=== PATIENT | female | born 1960 | race Caucasian/White ===

== ENCOUNTER 2020-01-07 15:59 | Emergency (ER) | payer BC, OTHER ==
[2020-01-07] MEDS ORDERED: Lidocaine 1% 10 ML MDV INJECT ONE (16:14)
[2020-01-07] MEDS ORDERED: Diphtheria,Pertussis(Acell),Tetanus Vaccine 0.5 ML Syringe IM ONE (16:14)
--- NOTE | 2020-01-07 16:29 | EDM.PDOC ---
ED HPI GENERAL MEDICAL PROBLEM - General Chief Complaint: Laceration Stated Complaint: L MIDDLE FINGER LAC Time Seen by Provider: 01/07/20 16:08 Source of Information: Reports: Patient, RN Notes Reviewed History Limitations: Reports: No Limitations - History of Present Illness INITIAL COMMENTS - FREE TEXT/NARRATIVE: Patient is a 59-year-old female who presents to the ED for evaluation of a left middle finger laceration. Patient was at work at [email or web address], at around 3:25 PM when she got her finger caught between some metal tubs. This was a pinching type injury, and resulted in a V-shaped skin flap type laceration to the patient 's pad of her left middle digit. This extends from mid nail, to the DIP aspect , and then into the pad on the anterior portion of the left finger. She is able to move her finger in all range of motion. This is roughly 3.5 cm in length total, not jagged. Patient is unsure of her last tetanus immunization. She relates no other past medical history, She is not on any blood thinners. - Related Data Allergies Allergy/AdvReac Type Severity Reaction Status Date / Time No Known Allergies Allergy Verified 01/07/20 16:10 Home Meds: Home Meds . [No Known Home Meds] 01/07/20 [History] Past Medical History Psychiatric History: Reports: PTSD - Past Surgical History Female Surgical History: Reports: Section Social & Family History - Tobacco Use Smoking Status *Q: Never Smoker - Caffeine Use Caffeine Use: Reports: Coffee - Recreational Drug Use Recreational Drug Use: No ED ROS GENERAL - Review of Systems Review Of Systems: Comprehensive ROS is negative, except as noted in HPI. Skin: Reports: Wound (see HPI) ED EXAM, SKIN/RASH Exam: See Below Exam Limited By: No Limitations General Appearance: Alert, WD/WN, No Apparent Distress Eye Exam: Bilateral Eye: EOMI, Normal Inspection, PERRL Ears: Normal External Exam Nose: Normal Inspection Throat/Mouth: Normal Inspection Head: Atraumatic, Normocephalic Neck: Normal Inspection Respiratory/Chest: No Respiratory Distress, Lungs Clear, Normal Breath Sounds, No Accessory Muscle Use, Chest Non-Tender Cardiovascular: Normal Peripheral Pulses, Regular Rate, Rhythm, No Murmur Peripheral Pulses: 3+: Radial (L), Radial (R) Extremities: Normal Inspection, Normal Range of Motion, Normal Capillary Refill Neurological: Alert, Oriented, Normal Cognition, No Motor/Sensory Deficits Psychiatric: Normal Affect, Normal Mood Skin: Warm, Dry, Normal Color, No Rash, Wound/Incision (3.5 cm V-shaped wound to the anterior aspect of the left distal finger. This starts in the mid nail and runs diagonally to the DIP joint, and then again diagonally to the mid finger pad.) Location, Skin: Lower Extremity, Left ED SKIN PROCEDURES - Laceration/Wound Repair Left Anterior Distal Digit - 3rd (Middle) Appearance: Superficial, Clean Distal NVT: Neuro & Vascular Intact, No Tendon Injury Skin Prep: Chlorhexidine (Hibiciens), Saline Exploration/Debridement/Repair: Wound Explored, In a Bloodless Field, Explored to Base, No Foreign Material Found Closed with: Dermabond Lac/Wound length In cm: 3.5 Sterile Dressing Applied: Nurse Tetanus Status Addressed: Yes Complications: No Course - Vital Signs Last Recorded V/S: Last Vital Signs Temp 97.9 F 01/07/20 16:13 Pulse 76 01/07/20 16:13 Resp 20 01/07/20 16:13 BP 149/84 H 01/07/20 16:13 Pulse Ox 99 01/07/20 16:13 - Orders/Labs/Meds Orders: Active Orders 24 hr Category Date Time Status Vaccines to be Administered [RC] PER UNIT ROUTINE Care 01/07/20 16:14 Ordered Meds: Medications Discontinued Medications Generic Name Dose Route Start Last Admin Trade Name Freq PRN Reason Stop Dose Admin Diphtheria/Tetanus/Acell Pertussis 0.5 ml 01/07/20 16:14 Adacel IM 01/07/20 16:15 .ONCE ONE Lidocaine HCl 10 ml 01/07/20 16:14 Xylocaine 1% INJECT 01/07/20 16:15 ONETIME ONE Departure - Departure Time of Disposition: 16:32 Disposition: Home, Self-Care 01 Condition: Fair Clinical Impression: Laceration of finger of left hand Qualifiers: Encounter type: initial encounter Finger: middle finger Damage to nail status: without damage Foreign body presence: without foreign body Qualified Code(s): S61.213A - Laceration without foreign body of left middle finger without damage to nail, initial encounter - Discharge Information *PRESCRIPTION DRUG MONITORING PROGRAM REVIEWED*: No *COPY OF PRESCRIPTION DRUG MONITORING REPORT IN PATIENT [place]: No Instructions: Stitches, Lm, or Adhesive Wound Closure, [id number] Referrals: Nabeel Osborn MD [Primary Care Provider] - Forms: ED Department Discharge Additional Instructions: You have been evaluated in the ED for your laceration. Your wound has been repaired with Dermabond. This will eventually wear itself off. Recommend that you keep the area covered with a gauze type bandage for the next few days. You may return to the ED or clinic for removal. Please keep this area clean and dry, you may cleanse with regular soap and water. No vigorous scrubbing. Watch out for signs of infection like increased redness, swelling, pain at the laceration site, or if you should develop any fevers or chills. Please return to ED if your symptoms change or worsen. Sepsis Event Note - Evaluation Sepsis Screening Result: No Definite Risk - Focused Exam Vital Signs: Vital Signs Temp Pulse Resp BP Pulse Ox 01/07/20 16:13 97.9 F 76 20 149/84 H 99 Date Exam was Performed: 01/07/20 Time Exam was Performed: 16:56 - My Orders Last 24 Hours: My Active Orders 01/07/20 16:14 Vaccines to be Administered [RC] PER UNIT ROUTINE - Assessment/Plan Last 24 Hours: My Active Orders 01/07/20 16:14 Vaccines to be Administered [RC] PER UNIT ROUTINE
== END 2020-01-07 17:21 | disposition home or self-care (01) ==
LOC: JD.ED 15:59
DX: S61.213A Laceration without foreign body of left middle finger without damage to nail, initial encounter (principal); Z23 Encounter for immunization; W23.0XXA Caught, crushed, jammed, or pinched between moving objects, initial encounter
CPT/HCPCS: 12002; 90471; 90715; 99282